=== PATIENT | female | born 1965 | race Caucasian/White ===

== ENCOUNTER 2019-02-11 12:51 | Inpatient (IN) ==
[2019-02-11] MEDS ORDERED: PREDNISONE PO ONE (13:52)
[2019-02-11] MEDS ORDERED: DUONEB (A & A) INH ONE ×2 (13:52→16:32)
--- NOTE | 2019-02-11 14:21 | EKG Report ---
Test Performed on : 02/11/2019 12:56:52 PM Test Reason : ED. No order in [place] Blood Pressure : / mmHG Vent. Rate : 086 BPM Atrial Rate : 086 BPM P-R Int : 170 ms QRS Dur : 094 ms QT Int : 360 ms P-R-T Axes : 020 060 049 degrees QTc Int : 430 ms Sinus rhythm. with occasional premature ventricular complexes. Incomplete right bundle branch block Borderline ECG When compared with ECG of 05-SEP-2011 06:10, premature ventricular complexes. are now present Unconfirmed Result
[2019-02-11 15:09] LABS: BASO# 0.03 X1000 (0.0-0.2); BASO% 0.2 % (0.0-0.8); EOS# 0.49 X1000 (0.0-0.7); HEMATOCRIT 44.7 % (37.0-47.0); HEMOGLOBIN 14.1 g/dL (12.0-16.0); IMM GRAN# 0.04 X1000 (0.0-0.04); IMM GRAN% 0.3 % (0.0-0.5); LYMPH% 8.2 % (20.5-51.1); MCH 27.3 PG (27-31); MCHC 31.5 g/dL (33-37); MCV 86.5 FL (81-99); MONO# 0.59 X1000 (0.11-0.59); MONO% 4.8 % (1.7-9.3); MPV 10.3 FL (7.4-10.4); NEUT# 10.08 X1000 (1.4-6.5); NEUT% 82.5 % (42.2-75.2); PLT 313 X1000 (130-400); RBC 5.17 XMIL (4.2-5.4); RDW 15.8 % (11.5-14.5); WBC 12.23 X1000 (4.8-10.8)
--- NOTE | 2019-02-11 15:19 | Diag Imaging Result Doc PS360 ---
EXAM: CHEST-1 VIEW - 02/11/2019 HISTORY: wheezing TECHNIQUE: Portable chest COMPARISON: 09/03/2011 FINDINGS: Heart size is normal. There is right upper lobe calcified granuloma from old granulomatous disease similar to prior. There is symmetrical haziness at the bilateral lateral lung bases which appears to relate to artifact from overlying breast shadows. Lungs otherwise appear clear. The lungs do not appear substantially hyperexpanded. There is no pleural effusion or pneumothorax identified. IMPRESSION: No evidence of acute disease. Electronically signed by Filiberto Reid 02/11/2019 3:16 PM
[2019-02-11 15:32] LABS: AGAP 11; ALB/GLOB RATIO 1.1; ALBUMIN 3.9 g/dL (3.5-5.0); ALKALINE PHOSPHATASE 68 U/L (32-104); BUN 10 mg/dL (8-22); CALCIUM 8.9 mg/dL (8.8-10.2); CHLORIDE 102 mmol/L (98-107); COSMO 279; CREATININE 0.7 mg/dL (0.5-0.9); ESTIMATED GFR > 60; GLUCOSE 145 mg/dL (70-104); GOT 28 U/L (10-30); GPT 22 U/L (10-36); POTASSIUM 3.9 mmol/L (3.5-5.1); SODIUM 139 mmol/L (136-145); TCO2 26 mmol/L (25-35); TOTAL BILIRUBIN 0.73 mg/dL (0.20-1.00); TOTAL PROTEIN 7.5 g/dL (6.3-8.3)
[2019-02-11] MEDS ORDERED: DUONEB (A & A) INH PRN (18:31)
[2019-02-11] MEDS: DUONEB (A & A) INH SCH ×2 (19:30→23:23)
[2019-02-11] MEDS: SOLU-MEDROL IV SCH (20:07)
[2019-02-11] MEDS: LOVENOX SUBQ SCH (20:10)
[2019-02-11] MEDS: NS 1,000 ML IV SCH (20:11)
[2019-02-11] MEDS: LEVAQUIN 500 MG/D5W 500 MG/100 ML IVPB IV SCH (20:12)
[2019-02-11] MEDS ORDERED: NORVASC PO ONE (20:32)
[2019-02-11 21:19] LABS: CK INDEX 0.8 (0.0-2.5); CK-MB 8.18 ng/mL (0.0-5.0)
--- NOTE | 2019-02-11 22:22 | HISTORY AND PHYSICAL ---
CHIEF COMPLAINT.: Wheezing which has been ongoing for the last 2 months. HISTORY OF PRESENT ILLNESS: Ms. Lizeth Flores is a 53-year-old female who has a history of bronchial asthma, hypertension, obesity, hypothyroidism. In the past 2 months, she has been experiencing wheezing and this has progressively gotten worse. In addition she describes nonproductive cough as well as shortness of breath. She denies any chest pain. She was seen and evaluated in the ER today. X-ray of the chest did not show any evidence of acute disease. She will now be admitted to the hospital for further management. PAST MEDICAL HISTORY: Hypertension, hypothyroidism, obesity, bronchial asthma. SOCIAL HISTORY: No history of cigarette smoking, alcohol or drug use. ALLERGIES: No known drug allergies. FAMILY HISTORY: Positive for strokes as well as cancer. MEDICATIONS: Include levothyroxine as well as lisinopril hydrochlorothiazide 10/25 one p.o. daily. REVIEW OF SYSTEMS: Constitutional: No fevers. RADIOLOGIST PHYSICIAN: Has headaches. HEENT: No blurred vision. Has a nasal congestion. Cardiovascular: No chest pain. GI: No nausea, vomiting, diarrhea. : No dysuria Dermatology: No skin lesions. Hematology: No bleeding problems. Endocrine: She has thyroid disease but no diabetes. EXAMINATION: Vital Signs: Temperature 98.1 degrees, pulse 86, respiratory rate is 20, blood pressure is 116/89, oxygen saturation 94%. HEENT: She is atraumatic, normocephalic. She is anicteric. No oral lesions noted. Neck: No lymphadenopathy or thyromegaly. Cardiovascular: S1, S2. Respiratory: Occasional rhonchi noted. Abdomen: Soft, obese, nontender. No masses felt. Extremities: Trace edema in the lower extremities. Central nervous system: No obvious focal deficits noted. LABS: WBC 12.23, hematocrit is 44.7 with a platelet count of 313,000. Sodium 139, potassium 3.9, chloride 102, bicarb 26, BUN is 10, creatinine 0.97, CK is 1068. ASSESSMENT AND PLAN: This is a 53-year-old female presented to hospital because of cough, shortness of breath as well as wheezing. 1. Bronchial asthma exacerbation. Will maintain patient on nebulized bronchodilators, steroids as well as antibiotics. Follow up on sputum cultures. In light of the severity of her symptoms I would like her managed today CIC. Will also get a Pulmonology consult as well. 2. Rhabdomyolysis. Maintain her on intravenous fluids and follow up on CK levels. 3. Hypothyroidism. Check thyroid function test. Continue levothyroxine. 4. Hypertension. Continue current antihypertensive regimen. 5. Morbid obesity aware. The patient will need to be on a low calorie diet. 6. Deep vein thrombosis prophylaxis Lovenox. 7. Gastrointestinal prophylaxis PPI. cc: Juni Gibson MD [facility]
[2019-02-11 23:20] LABS: BLOOD TYPE ARTERIAL; SAMPLE BLOOD
[2019-02-11 23:21] LABS: ALLEN TEST YES; HCO3-(ACT) 27.2 mmoll (20.0-26.0); METHB 1.1 % (0.0-1.5); O2(CT) 19.9 mL/dL (15.0-23.0); O2HB 95.5 % (95.0-99.0); PCO2(98.6) 39 mmHg (35-45); PO2(98.6) 84 mmHg (60-100); SAO2 98.4 % (95.0-100.0); THB 14.8 g/dL (11.5-17.4); pH(98.6) 7.45 (7.35-7.45)
[2019-02-11 23:22] LABS: MODALITY CANNULA
[2019-02-12] MEDS: SOLU-MEDROL IV SCH ×3 (02:06→18:13)
[2019-02-12 03:53] LABS: CK INDEX 0.8 (0.0-2.5); CK-MB 7.51 ng/mL (0.0-5.0)
[2019-02-12] MEDS: DUONEB (A & A) INH SCH ×5 (04:25→19:32)
[2019-02-12 05:42] LABS: ALLEN TEST YES; BE 1.6 mmoll (-3.0-3.0); BLOOD TYPE ARTERIAL; HCO3-(ACT) 26.1 mmoll (20.0-26.0); METHB 1.2 % (0.0-1.5); O2(CT) 20.4 mL/dL (15.0-23.0); O2HB 95.8 % (95.0-99.0); PCO2(98.6) 39 mmHg (35-45); PO2(98.6) 95 mmHg (60-100); SAMPLE BLOOD; SAO2 98.4 % (95.0-100.0); THB 15.1 g/dL (11.5-17.4); pH(98.6) 7.43 (7.35-7.45)
[2019-02-12 05:46] LABS: MODALITY CANNULA
[2019-02-12 05:55] LABS: BASO# 0.01 X1000 (0.0-0.2); BASO% 0.1 % (0.0-0.8); EOS# 0.01 X1000 (0.0-0.7); EOS% 0.1 % (0.0-10.0); HEMATOCRIT 42.2 % (37.0-47.0); HEMOGLOBIN 13.5 g/dL (12.0-16.0); IMM GRAN# 0.07 X1000 (0.0-0.04); IMM GRAN% 0.5 % (0.0-0.5); LYMPH# 0.55 X1000 (1.2-3.4); LYMPH% 4.3 % (20.5-51.1); MCH 27.5 PG (27-31); MCV 85.9 FL (81-99); MONO# 0.12 X1000 (0.11-0.59); MONO% 0.9 % (1.7-9.3); MPV 10.6 FL (7.4-10.4); NEUT# 12.16 X1000 (1.4-6.5); NEUT% 94.1 % (42.2-75.2); PLT 323 X1000 (130-400); RBC 4.91 XMIL (4.2-5.4); RDW 15.8 % (11.5-14.5); WBC 12.92 X1000 (4.8-10.8)
[2019-02-12 06:05] LABS: AGAP 11; BUN 12 mg/dL (8-22); CALCIUM 8.9 mg/dL (8.8-10.2); CHLORIDE 102 mmol/L (98-107); CK TOTAL 920 U/L (24-173); COSMO 283; CREATININE 0.7 mg/dL (0.5-0.9); ESTIMATED GFR > 60; GLUCOSE 210 mg/dL (70-104); SODIUM 139 mmol/L (136-145); TCO2 26 mmol/L (25-35)
[2019-02-12 06:07] LABS: BANDS 2 % (0-1); LYMPHS 6 % (21-51); SEGS 92 % (42-75)
[2019-02-12] MEDS: PRILOSEC PO SCH (06:21)
[2019-02-12] MEDS: SYNTHROID PO SCH (06:21)
--- NOTE | 2019-02-12 07:57 | Diag Imaging Result Doc PS360 ---
EXAM: CHEST-1 VIEW INDICATION: asthma TECHNIQUE: One view COMPARISON: 02/11/2019 FINDINGS: The lungs remain grossly clear. There is no discrete pleural fluid collection or pneumothorax. The cardiomediastinal silhouette and central vasculature are grossly unremarkable. IMPRESSION: Essentially stable chest with no definite acute pathology. Electronically signed by Mark Adam 02/12/2019 7:55 AM
[2019-02-12] MEDS: NS 1,000 ML IV SCH ×2 (08:30→23:07)
[2019-02-12] MEDS: PRINZIDE 10/12.5MG PO SCH (08:30)
[2019-02-12 12:42] LABS: CK INDEX 1.1 (0.0-2.5); CK-MB 10.08 ng/mL (0.0-5.0)
--- NOTE | 2019-02-12 17:27 | PROGRESS NOTE ---
DATE: 02/12/2019 SUBJECTIVE: This morning Ms. Flores referred to be feeling a lot better but she is still wheezing. OBJECTIVE: Vitals: Blood pressure is 113/73, pulse of 85, respiration is 18, temperature is 97.8 degrees. General: Ms. Flores is a 53-year-old morbidly obese female she is in bed, no distress. Mucosa is pink and moist. Anicteric. Acyanotic. Neck: Supple. Chest: Air entry is bilaterally reduced. There is diffuse end expiratory wheezing, no crackles. Cardiovascular: Regular rate and rhythm. Abdomen: Soft. Extremities: No pedal edema. CRM COORDINATOR: Patient is awake, alert, oriented, follows commands. LABORATORY DATA: Has been reviewed. WBC is 13.92, hemoglobin is 13.5, platelet count of 323,000. ABG is unremarkable. Chemistry is completely normal, AST is 929. MEDICATIONS: Have all been reviewed. Patient is currently on albuterol nebs, Levaquin, levothyroxine, lisinopril plus hydrochlorothiazide and amlodipine. ASSESSMENT: 1. Acute hypoxemic respiratory failure secondary to asthma exacerbation. 2. Persistent moderate bronchial asthma with exacerbation. Will continue with bronchodilation and steroid therapy. Patient seems to be doing a lot better. 3. Seasonal allergies noted. 4. Hypertension. Patient is on hydrochlorothiazide and lisinopril, she seems to be well controlled. This is a home medication. However if her cough continues to be a problem I think the lisinopril will probably need to be changed. 5. Rhabdomyolysis, CK was elevated on admission, it seems to be trending down. I think this is all related to excess utilization of the intercostal muscles, will however do an LUPE to rule out any possible underlying myositis. 6. Hypothyroidism, will continue with levothyroxine. 7. Morbid obesity with body mass index of 60.7, weight management is advised. cc: MD Juni Maurer MD MTDD
[2019-02-12] MEDS: LEVAQUIN 500 MG/D5W 500 MG/100 ML IVPB IV SCH (18:13)
[2019-02-12] MEDS: LOVENOX SUBQ SCH (18:15)
--- NOTE | 2019-02-12 19:25 | CONSULTATION ---
DATE OF CONSULTATION: 02/12/2019 REQUESTING PROVIDER: Juni Gibson MD REASON FOR CONSULTATION: Asthma exacerbation. HISTORY OF PRESENT ILLNESS: This is a 53-year-old female with a medical history of asthma, morbid obesity, hypertension and hypothyroidism. She presented to the ER yesterday morning with worsening wheezing. Initial workup in the ER revealed asthma exacerbation and rhabdomyolysis. She has been admitted to the [facility] for further evaluation and management. At the time of my examination, the patient is sitting in the bed with her at the bedside. She has mild respiratory distress, but no accessory muscle using noted. She reports she has bronchitis annually for 5 years when the weather becomes cold, and this year it has been really bad. She has being coughing with thick creamy sputum, chest congestion, intermittent wheezing and shortness of breath since last August. Since this Thursday, she developed watery right eye and stuffed right nostril. She began to breathe through her mouth. Later her wheezing, coughing, chest congestion and shortness of breath became progressively worsened. She had to use nebulizer daily. She also had orthopnea. Yesterday morning at 4 a.m. she woke up with severe chest congestion and wheezing. She felt that she could not breathe. She also reports intermittent pedal edema and witnessed snoring. She has no chest pain or palpitations. PAST MEDICAL AND SURGICAL HISTORY: 1. Asthma. The patient reports she has been prescribed with some maintenance inhalers, but she never takes it as she cannot afford it. 2. Morbid obesity. Current BMI 60.7. 3. Hypertension. 4. Hypothyroidism. SOCIAL HISTORY: The patient is and lives at home with her family. She has no pet at home. She has no history of tobacco, alcohol or illicit drug use. ALLERGIES: No known drug allergies. FAMILY HISTORY: Positive for stroke, liver cancer, breast cancer, TB and leukemia. REVIEW OF SYSTEMS: A 10-point review of systems was conducted and the pertinence is listed in the HPI, otherwise noncontributory. PHYSICAL EXAMINATION: Vital Signs: Temperature 97.4 degrees, blood pressure 163/85, pulse 77, respiratory rate 18, oxygen saturation 94% on nasal cannula at 2. General: Chronically ill appearing, morbidly obese, in mild respiratory distress with no accessory muscle use. The patient's at bedside. HEENT: Atraumatic. Trachea midline. Mucosa pink and dry. Respiratory: Mildly labored. Symmetrical excursion. Auscultation revealed diminished breathing sounds bibasilarly with prolonged expiratory phase and expiratory wheezing bilaterally. Cardiovascular: Regular rate and rhythm. Gastrointestinal: Normoactive bowel sounds in all 4 quadrants. Soft, tender at left lower quadrant with cough. Obese. Extremities: Bilateral lower extremity pedal edema 2+. No cyanosis. No clubbing. Dorsalis pedis 1+ bilaterally. Neurologic: Alert and oriented x3. Speech fluent. Follows commands. LABORATORY DATA: White blood cell 12.92, hemoglobin 13.5, hematocrit 42.2, platelets 323,000. Sodium 139, potassium 4.0, chloride 102, carbon dioxide 26, BUN 12, creatinine 0.7, glucose 210. CK is 920. CK-MB 7.51. ABG pH 7.43, pCO2 is 39, pO2 is 95, HCO3 is 26.1, base excess 1.6, and oxyhemoglobin 95.8. DIAGNOSTIC DATA: Chest x-ray revealed essentially stable chest with no definite acute pathology. ASSESSMENT: This is a 53-year-old female with a medical history of asthma, morbid obesity, hypertension and hypothyroidism. She has been admitted to the cardiac intensive care unit with asthma exacerbation and rhabdomyolysis. 1. Acute hypoxemic respiratory failure secondary to asthma exacerbation. 2. Asthma exacerbation. 3. Morbid obesity. 4. Rhabdomyolysis. PLAN: 1. Continue supplemental oxygen. 2. Continue antibiotics, steroid and bronchodilators. 3. Follow up with proBNP and sputum culture. 4. Recommend to continue LIAM; initiate an inhaled corticosteroid at discharge; and close outpatient paper maker followup. 5. Continue GI and DVT prophylaxis. 6. Further recommendations pending hospital course. Thank you for the courtesy of this consult. Dictated by DENICE Chapman for Molina Choi MD cc: DENICE Chapman MD Clement Okinedo, MD [facility] SYSTEMCarlene
[2019-02-13] MEDS: DUONEB (A & A) INH SCH ×7 (02:33→23:47)
[2019-02-13] MEDS: SOLU-MEDROL IV SCH ×3 (02:56→17:48)
[2019-02-13 06:04] LABS: BASO# 0.01 X1000 (0.0-0.2); HEMATOCRIT 42.4 % (37.0-47.0); HEMOGLOBIN 13.2 g/dL (12.0-16.0); IMM GRAN# 0.14 X1000 (0.0-0.04); IMM GRAN% 0.7 % (0.0-0.5); LYMPH# 0.67 X1000 (1.2-3.4); LYMPH% 3.3 % (20.5-51.1); MCH 27.6 PG (27-31); MCHC 31.1 g/dL (33-37); MCV 88.7 FL (81-99); MONO# 0.83 X1000 (0.11-0.59); MONO% 4.1 % (1.7-9.3); MPV 10.5 FL (7.4-10.4); NEUT# 18.49 X1000 (1.4-6.5); NEUT% 91.9 % (42.2-75.2); PLT 313 X1000 (130-400); RBC 4.78 XMIL (4.2-5.4); RDW 16.3 % (11.5-14.5); WBC 20.14 X1000 (4.8-10.8)
[2019-02-13] MEDS: SYNTHROID PO SCH (06:07)
[2019-02-13] MEDS: PRILOSEC PO SCH (06:07)
[2019-02-13 06:10] LABS: AGAP 9; ALB/GLOB RATIO 1.2; ALBUMIN 3.7 g/dL (3.5-5.0); ALKALINE PHOSPHATASE 59 U/L (32-104); BUN 15 mg/dL (8-22); CALCIUM 8.3 mg/dL (8.8-10.2); CHLORIDE 105 mmol/L (98-107); CK TOTAL 874 U/L (24-173); COSMO 285; CREATININE 0.7 mg/dL (0.5-0.9); ESTIMATED GFR > 60; GLUCOSE 214 mg/dL (70-104); GOT 25 U/L (10-30); GPT 24 U/L (10-36); POTASSIUM 4.6 mmol/L (3.5-5.1); SODIUM 139 mmol/L (136-145); TCO2 25 mmol/L (25-35); TOTAL BILIRUBIN 0.24 mg/dL (0.20-1.00); TOTAL PROTEIN 6.7 g/dL (6.3-8.3)
[2019-02-13 06:17] LABS: BANDS 2 % (0-1); LYMPHS 4 % (21-51); MONO 2 % (1-9); SEGS 92 % (42-75)
[2019-02-13] MEDS: ZYRTEC PO SCH (08:45)
[2019-02-13] MEDS: PRINZIDE 10/12.5MG PO SCH (08:45)
[2019-02-13] MEDS: NS 1,000 ML IV SCH (13:06)
--- NOTE | 2019-02-13 15:36 | PROGRESS NOTE ---
DATE: 02/13/2019 SUBJECTIVE: This morning Ms. Flores refers to be doing fairly okay. Still has some residual wheezing. OBJECTIVE: Vitals: Blood pressure is 147/72, pulse is 79, respiration is 18, temperature 97.3 degrees. General: Ms. Flores is a 53-year-old female she is in bed, no seemingly distress. Mucosa is pink and moist. Anicteric. Acyanotic. Neck: Supple. She is obese. BMI is 60.7. Respiratory: Air entry is bilaterally reduced. There is diffuse bilateral wheezing. There is also prolonged expiratory phase of respiration. Cardiovascular: Regular rate and rhythm. No murmurs, no rubs, no gallops. Abdomen: Soft, nontender. Bowel sounds present. Extremities: No pedal edema. Distal pulses present. PAVING BLOCK CUTTER: Patient is awake, alert and oriented. LABORATORY DATA: WBC is up to 20.14, hemoglobin is 13.3, platelet count of 313,000. Chemistry is also reviewed is completely normal, glucose was slightly up to 214 from the steroids, creatine kinase is down to 874. ASSESSMENT: 1. Acute hypoxemic respiratory failure secondary to asthma exacerbation. 2. Persistent mild to moderate bronchial asthma with exacerbation. Will continue with the bronchodilation and steroids. Pulmonary Medicine is on board. Seasonal allergies. Patient is currently on Zyrtec. 1. Hypertension is currently controlled. 2. Mild rhabdomyolysis. CK is on downward trend. Patient is currently on fluids. 3. Hypothyroidism. Will continue with levothyroxine supplementation. 4. Morbid obesity with body mass index of 60.7. So in general I think Ms. Flores seems to be doing fairly okay. She seems to be wheezing less today than yesterday. We are going to continue with the current management and follow up with further recommendation from Pulmonary Medicine. Patient has been seen by Dr. Choi. cc: Sesar Coppola MD
[2019-02-13] MEDS ORDERED: ROBITUSSIN-AC PO PRN (17:07)
[2019-02-13] MEDS: LOVENOX SUBQ SCH (17:48)
[2019-02-13] MEDS: LEVAQUIN 500 MG/D5W 500 MG/100 ML IVPB IV SCH (17:48)
[2019-02-14] MEDS ORDERED: BLISTEX MEDICATED BERRY LIP BALM TOP PRN (00:35)
[2019-02-14] MEDS: SOLU-MEDROL IV SCH ×3 (02:03→21:48)
[2019-02-14] MEDS: NS 1,000 ML IV SCH ×3 (02:03→19:01)
[2019-02-14] MEDS: DUONEB (A & A) INH SCH ×6 (03:40→23:35)
[2019-02-14] MEDS: SYNTHROID PO SCH (06:05)
[2019-02-14] MEDS: PRILOSEC PO SCH (06:05)
--- NOTE | 2019-02-14 08:37 | PROGRESS NOTE ---
DATE: 02/14/2019 SUBJECTIVE: Patient reports she is still having chest tightness every time she tried to move some. At rest, she noticed improvement in shortness of breath. OBJECTIVE: Vital Signs: Temperature 97.7, heart rate 67, respiratory rate 18, blood pressure 155/79, O2 saturation 94% on 2 L nasal cannula. General Examination: This is a chronically ill- appearing and extremely morbidly obese, 53-year-old, female lying in bed, in no acute distress. Cardiovascular Examination: S1, S2 heard. No murmurs, gallops, or rubs. Regular rate and rhythm. Respiratory Examination: Decreased air entry bilaterally, most likely related to body habitus but still we noticed some diffuse wheezing in both pulmonary bases and prolonged expiratory phase of respiration as well. The patient is not using any accessory muscles or having work of breathing. Abdomen: Soft, nontender to palpation. Bowel sounds present. No organomegaly. Extremities: No clubbing, cyanosis, or edema. Peripheral pulses present in both legs. Neurological Examination: The patient is alert and oriented x3. Moves 4 extremities. Laboratory Data: Reviewed. White cell count has increased from 12,000 to 20,000. Glucose 214. ASSESSMENT/PLAN: 1. Acute hypoxemic respiratory failure secondary to asthma exacerbation. Patient is on DuoNeb every 4 hours and also the patient is receiving methylprednisolone as well. Because of the increasing white cell count, I will prefer to start reducing the doses of Solu-Medrol and we will keep checking CBC daily. 2. Hypertension. Blood pressure is under control. We will continue with the same management. 3. Mild rhabdomyolysis. Aware. We will continue with intravenous fluids. 4. Hypothyroidism. We will continue with levothyroxine supplementation. 5. Morbid obesity. Aware. Body mass index 60.7. 6. Disposition. I think this patient needs to stay more time in the hospital. I do think that part of this dyspnea is not only related to asthma exacerbation but could be some degree of obstructive sleep apnea present with cor pulmonale because of this morbid obesity. At this point, I am going to order an echocardiogram and we will go from there. We will continue with the same management. cc: Sandoval Russo MD
[2019-02-14] MEDS: ZYRTEC PO SCH (08:45)
[2019-02-14] MEDS: PRINZIDE 10/12.5MG PO SCH (08:45)
--- NOTE | 2019-02-14 09:26 | Diag Imaging Result Doc PS360 ---
EXAM: CHEST-2 VIEWS HISTORY: hypoxia TECHNIQUE: Chest two views COMPARISON: 02/12/2019 FINDINGS: The lungs are well expanded. The heart is not enlarged. The vessels are not distended. There are no infiltrates. No pleural effusions. There is a right-sided granuloma. IMPRESSION: No acute abnormality. Electronically signed by Edward Jade 02/14/2019 9:23 AM
--- NOTE | 2019-02-14 15:33 | EKG Report ---
Test Performed on : 02/14/2019 3:27:04 PM Test Reason : SR/vs Afib Blood Pressure : / mmHG Vent. Rate : 120 BPM Atrial Rate : 144 BPM P-R Int : 000 ms QRS Dur : 088 ms QT Int : 310 ms P-R-T Axes : 000 053 046 degrees QTc Int : 438 ms Atrial fibrillation. with rapid ventricular response. Nonspecific ST abnormality Abnormal ECG When compared with ECG of 11-FEB-2019 12:56, (Unconfirmed) Atrial fibrillation. has replaced Sinus rhythm. ST now depressed in Inferior leads Confirmed by Leyla STUART, Shady ([id number]) on 02/15/2019 8:37:30 AM
[2019-02-14] MEDS: FLONASE NAS SCH (15:52)
[2019-02-14] MEDS: LOPRESSOR IV SCH ×2 (16:07→21:48)
[2019-02-14] MEDS: LEVAQUIN 500 MG/D5W 500 MG/100 ML IVPB IV SCH ×2 (17:39→17:46)
[2019-02-14] MEDS: LOVENOX SUBQ SCH ×2 (17:39→17:46)
[2019-02-15] MEDS: DUONEB (A & A) INH SCH ×6 (03:25→23:25)
[2019-02-15] MEDS: LOPRESSOR IV SCH ×2 (03:30→09:14)
[2019-02-15 05:51] LABS: BASO# 0.02 X1000 (0.0-0.2); BASO% 0.1 % (0.0-0.8); HEMATOCRIT 44.8 % (37.0-47.0); HEMOGLOBIN 13.8 g/dL (12.0-16.0); IMM GRAN# 0.24 X1000 (0.0-0.04); IMM GRAN% 1.7 % (0.0-0.5); LYMPH# 0.87 X1000 (1.2-3.4); LYMPH% 6.3 % (20.5-51.1); MCH 27.5 PG (27-31); MCHC 30.8 g/dL (33-37); MCV 89.4 FL (81-99); MONO# 0.74 X1000 (0.11-0.59); MONO% 5.3 % (1.7-9.3); MPV 10.5 FL (7.4-10.4); NEUT# 12.01 X1000 (1.4-6.5); NEUT% 86.6 % (42.2-75.2); PLT 290 X1000 (130-400); RBC 5.01 XMIL (4.2-5.4); RDW 16.2 % (11.5-14.5); WBC 13.88 X1000 (4.8-10.8)
[2019-02-15 06:22] LABS: AGAP 11; BUN 18 mg/dL (8-22); CHLORIDE 101 mmol/L (98-107); COSMO 287; CREATININE 0.8 mg/dL (0.5-0.9); ESTIMATED GFR > 60; GLUCOSE 237 mg/dL (70-104); SODIUM 139 mmol/L (136-145); TCO2 27 mmol/L (25-35)
[2019-02-15] MEDS: PRILOSEC PO SCH (06:44)
[2019-02-15] MEDS: SYNTHROID PO SCH (06:44)
[2019-02-15] MEDS: NS 1,000 ML IV SCH (06:45)
--- NOTE | 2019-02-15 09:15 | Diag Imaging Result Doc PS360 ---
EXAM: CT ANGIOGRM PULMONARY ARTERIES INDICATION: Dyspnea. unresolved TECHNIQUE: This exam was performed using automated exposure control, adjustment of mA or kV according to patient size, and/or use of iterative reconstruction technique. Thin section axial images and 3-D MIPS were obtained. COMPARISON: None. FINDINGS: There is no evidence of pulmonary embolism. There is no evidence of aortic dissection or aneurysm. There are a few calcified mediastinal lymph nodes indicating prior granulomatous disease. There is no cardiomegaly. There is a calcified granuloma in the right upper lobe. There is mild subsegmental atelectasis at the lung bases, more prominent on the left. There is no pleural fluid collection and no pneumothorax. Limited views of the upper abdomen reveals hepatic steatosis. IMPRESSION: 1.Mild subsegmental atelectasis at the bases. 2.No evidence of pulmonary embolism or other definite acute chest pathology, otherwise. Electronically signed by Mark Adam 02/15/2019 9:12 AM
[2019-02-15] MEDS: PRINZIDE 10/12.5MG PO SCH (09:17)
[2019-02-15] MEDS: ZYRTEC PO SCH (09:18)
[2019-02-15] MEDS: SOLU-MEDROL IV SCH ×2 (09:18→20:22)
[2019-02-15] MEDS: FLONASE NAS SCH (11:28)
[2019-02-15] MEDS ORDERED: CARDIZEM 125 MG/D5W 125 MG/125 ML IVPB IV SCH (14:00)
--- NOTE | 2019-02-15 14:17 | ECHO REPORT ---
ORDER DATE: 02/14/2019 INTERPRETING PHYSICIAN: Dr. Art Victor. ECHOCARDIOGRAPHIC MEASUREMENTS: 1. Interventricular septum: 1.2 cm. 2. Left ventricular posterior wall: 0.9 cm. 3. Diastolic diameter: 5.1 cm. 4. Left atrium: 3.5 cm. 5. Aorta: 3.2 cm. SUMMARY OF THE 2-DIMENSIONAL IMAGIN. Aortic valve leaflets were trileaflet, mildly sclerosed, opening normally. 2. Pulmonic valve was normal. 3. Tachycardia was noted. Heart rate varying from 100 to 115 beats per minute. 4. Tricuspid valve was normal. 5. Mitral valve was normal. 6. Normal left ventricular cavity size. Estimated ejection fraction of 60%. 7. There is mild mitral regurgitation. 8. Peak velocity across the aortic valve less than 2 m/sec. There is no aortic stenosis or regurgitation. 9. Mild tricuspid regurgitation. Peak velocity across the tricuspid valve was 3.3 m/sec. 10. Pulmonary artery systolic pressure of 53 mmHg. 11. Atrial fibrillation was noted. 12. Anterior echo-free space, suggestive of pericardial fat pad. 13. There is no pericardial effusion or obvious intracardiac mass or thrombus. cc: MD Sandoval Irving MD
--- NOTE | 2019-02-15 14:54 | PROGRESS NOTE ---
DATE: 02/15/2019 SUBJECTIVE: Today, Ms. Flores referred to be doing fairly okay. According to her, whenever she takes a deep breath, she feels like she is still not getting enough air. OBJECTIVE: Vital Signs: Blood pressure is 143/92, pulse 114, and she seems to have been running tachycardic since early this morning, temperature is 97.5 degrees. General Examination: Ms. Flores is a 53-year-old, morbidly obese, female. She has a BMI of 60.7. She was sitting at the edge of the bed. She did not seem to be in any cardiopulmonary distress. HEENT: Mucosa is pink and moist. Anicteric. Acyanotic. Neck: Supple. Chest: Air entry is bilaterally reduced, just some faint wheezing bilaterally but the chest sounds a whole lot better than days before. Cardiovascular: Irregularly irregular and tachycardic. No murmurs, no rubs, no gallops. Abdomen: Soft. Distended but nontender. Extremities: No pedal edema. LOW ALTITUDE AIR DEFENSE OFFICER: The patient is awake, alert, and oriented. There is no focal neurological deficit. Laboratory Data: WBC is 13.88, hemoglobin is 13.8, platelet count of 290,000. Chemistry is also reviewed. It is completely unremarkable except for glucose of 231. The patient's EKG did show atrial fibrillation with RVR yesterday. We are going to repeat this. Multiple tracings on telemetry monitoring also shows atrial fibrillation. An echocardiogram which was done yesterday shows an ejection fraction of 60%. No valvular abnormality. A CTA of the lungs showed mild segment atelectasis. No evidence of PE. ASSESSMENT: 1. Acute hypoxemic respiratory failure on presentation secondary to asthma exacerbation. The patient is currently on just 3 to 4 L of nasal cannula. We will continue to titrate this down. 2. Persistent [id number] bronchial asthma with exacerbation. This is improving. Patient is currently on bronchodilation therapy and steroids. Pulmonary medicine is on board. The patient has requested to be seen by another recycling operations manager so Dr. Santana has been consulted. 3. Seasonal allergies. Patient is currently on Zyrtec. 4. Hypertension, is controlled. 5. Mild rhabdomyolysis. CK was on downward trend. LUPE is negative. We do not think this is related to any myositis. 6. Hypothyroidism. We will continue with the levothyroxine supplements. 7. Morbid obesity with body mass index of 60.7. Weight management has been recommended. 8. Suspected sleep apnea. Patient is advised to follow up with sleep studies. 9. New onset of atrial fibrillation with rapid ventricular response. I understand this started yesterday. Patient denies having this before. I think this is what is driving her new onset of another round of shortness of breath and the sensation that she cannot catch her breath. I think she is going into some form of diastolic heart failure. We are going to put her on a Cardizem drip and we will consult cardiology. PLAN: In general, I think Ms. Flores seems to be doing a lot better from the asthma standpoint. However, I understand from yesterday, she had been in atrial fibrillation with RVR. She was given a dose of metoprolol. We are going to start her on a Cardizem drip and consult cardiology. So far, echocardiogram has been unremarkable. A CTA of the lung has also been unremarkable. cc: Sesar Coppola MD
[2019-02-15] MEDS: CARDIZEM 125/NS 125 MG/125 ML IVPB IV SCH (15:26)
--- NOTE | 2019-02-15 15:40 | EKG Report ---
Test Performed on : 02/15/2019 1:58:58 PM Test Reason : confirmation of Afib Blood Pressure : / mmHG Vent. Rate : 113 BPM Atrial Rate : 241 BPM P-R Int : 000 ms QRS Dur : 078 ms QT Int : 316 ms P-R-T Axes : 000 070 050 degrees QTc Int : 433 ms Atrial fibrillation. with rapid ventricular response. Abnormal ECG When compared with ECG of 14-FEB-2019 15:27, ST no longer depressed in Inferior leads Confirmed by Jonatan STUART, Ravinder Perez ([id number]) on 02/17/2019 8:45:15 AM
--- NOTE | 2019-02-15 17:24 | CARDIOLOGY CONSULTATION ---
DATE: 02/15/2019 CONSULTATION REQUESTED BY: Dr. Coppola, hospitalist service. REASON FOR CONSULTATION: Atrial fibrillation, rapid response. CHIEF COMPLAINT: Dyspnea. HISTORY: Mrs. Flores is a 53-year-old female who normally follows with Dr. Sallie Estevez. She presented to the hospital on February 11 with a complaint of a relatively sudden onset of dyspnea that started about 2 days prior to admission. The patient says that every year during the fall and during the springtime when she turns on her air condition system and turns off the heat or vice versa she develops symptoms of asthma. This time the symptoms were more severe than usual. Her dyspnea got worse. It was not controlled by the usual measures, rescue inhaler and so forth. She fell really sick with it. When she presented to the emergency room, EKG was done and it showed sinus rhythm with incomplete right bundle branch block. No ischemic changes. A chest x- ray was done in the ER was reported as negative. Blood work showed ABGs on 2 L of oxygen nasal cannula PO2 84, pCO2 39, pH 7.45. Her electrolytes were normal. Her creatine kinase was 1068. ProBNP initially was 106 pg/mL. Subsequently on the she developed a rapid rate and she appeared to be in atrial fibrillation with rapid response. They have requested an echocardiogram that showed normal ejection fraction. She has no valvular disease. ProBNP has jumped to 229 pg/mL. Her thyroid panel is normal. The patient has felt heaviness in the chest which is little different than the type of discomfort that she had on the day of admission. They have put her on IV Cardizem. Rate is better controlled right now. The patient states that her past history positive for asthma for a long time. She also has history of hypothyroidism and hypertension. SURGICAL HISTORY: She has had 2 C-sections. She had cholecystectomy, partial hysterectomy. SOCIAL HISTORY: She lives with her who is currently at work. She has 2 children ages 32 and 34. She has never been a smoker nor a drinker. FAMILY HISTORY: Negative for heart disease. HOME MEDICINES: At this time included levothyroxine 88 mcg daily, lisinopril hydrochlorothiazide 20/25 daily. ALLERGIES: Are negative. REVIEW OF SYSTEMS: The patient has been morbidly obese and she has gained weight progressively since she developed osteoarthritis of both knees. That is what limits her from doing activities. She currently weighs 387 pounds making her BMI 60.7, which is super morbidly obese. She really does not have any other positive other than the cyclical episodes of asthma during the change of season. Multiple systems were checked. She has never had issues with arrhythmia in the past or heart disease. PHYSICAL EXAMINATION: Blood pressure is 154/82, temperature 98.2 degrees, pulse 112, respirations 18. She is awake, alert, oriented, in no distress.HEENT: Unremarkable. Chest: Shows diminished breath sounds with bilateral wheezes. Heart: Sounds are distant, irregularly irregular. Abdomen: Obese, nontender. No masses. Extremities: Showed trace to 1+ brawny edema. She has good pulses. Neurological: Nonfocal. Moves 4 extremities. IMPRESSION: 1. Patient presenting with bronchial asthma with acute bronchitis. 2. Paroxysmal atrial fibrillation. 3. Morbid obesity. 4. Hypertension. 5. Hypothyroidism. RECOMMENDATION: At this time, we will treat the patient with diltiazem. I may add some digoxin to control her heart rate. The patient really needs to be referred to have bariatric surgery because there is no other way to deal with this condition unless she loses weight in a significant manner. I suggest deep venous thrombosis prophylaxis as you are doing and will be happy to arrange for followup upon discharge. She may benefit from Multaq 400 b.i.d. once she converts to sinus rhythm. At this time we will manage her conservatively. If she does not convert in 48 hours, we may have to put her on full dose enoxaparin and take it from there. cc: Blue Rubio MD
[2019-02-15] MEDS: LANOXIN IV SCH (18:00)
[2019-02-15] MEDS: LOVENOX SUBQ SCH (18:00)
[2019-02-15] MEDS: LEVAQUIN 500 MG/D5W 500 MG/100 ML IVPB IV SCH (18:01)
[2019-02-15] MEDS: CARDIZEM PO SCH (20:22)
[2019-02-16] MEDS: LANOXIN IV SCH ×3 (01:17→11:01)
[2019-02-16] MEDS: CARDIZEM PO SCH ×4 (01:27→20:02)
[2019-02-16] MEDS: CARDIZEM 125/NS 125 MG/125 ML IVPB IV SCH ×2 (03:19→18:23)
[2019-02-16] MEDS: DUONEB (A & A) INH SCH ×6 (03:25→23:13)
[2019-02-16 05:34] LABS: AGAP 9; BUN 16 mg/dL (8-22); CALCIUM 8.1 mg/dL (8.8-10.2); CHLORIDE 100 mmol/L (98-107); COSMO 286; CREATININE 0.8 mg/dL (0.5-0.9); ESTIMATED GFR > 60; GLUCOSE 236 mg/dL (70-104); POTASSIUM 4.6 mmol/L (3.5-5.1); SODIUM 139 mmol/L (136-145); TCO2 30 mmol/L (25-35)
[2019-02-16] MEDS: PRILOSEC PO SCH ×2 (05:36→06:12)
[2019-02-16] MEDS: SYNTHROID PO SCH ×2 (05:36→06:12)
[2019-02-16 06:19] LABS: BASO# 0.01 X1000 (0.0-0.2); BASO% 0.1 % (0.0-0.8); HEMATOCRIT 44.7 % (37.0-47.0); HEMOGLOBIN 13.8 g/dL (12.0-16.0); IMM GRAN% 1.3 % (0.0-0.5); LYMPH# 0.81 X1000 (1.2-3.4); LYMPH% 5.3 % (20.5-51.1); MCH 27.3 PG (27-31); MCHC 30.9 g/dL (33-37); MCV 88.3 FL (81-99); MONO# 0.67 X1000 (0.11-0.59); MONO% 4.4 % (1.7-9.3); MPV 10.3 FL (7.4-10.4); NEUT# 13.49 X1000 (1.4-6.5); NEUT% 88.9 % (42.2-75.2); PLT 283 X1000 (130-400); RBC 5.06 XMIL (4.2-5.4); RDW 16.1 % (11.5-14.5); WBC 15.18 X1000 (4.8-10.8)
--- NOTE | 2019-02-16 07:07 | EKG Report ---
Test Performed on : 02/16/2019 06:42:33 AM Test Reason : atrial fibrillation Blood Pressure : / mmHG Vent. Rate : 091 BPM Atrial Rate : 092 BPM P-R Int : 000 ms QRS Dur : 088 ms QT Int : 354 ms P-R-T Axes : 000 056 018 degrees QTc Int : 435 ms Atrial fibrillation. Abnormal ECG When compared with ECG of 15-FEB-2019 13:58, (Unconfirmed) No significant change was found Confirmed by Jonatan STUART, Ravinder Perez ([id number]) on 02/17/2019 8:46:04 AM
[2019-02-16 07:13] LABS: LYMPHS 2 % (21-51); SEGS 98 % (42-75)
[2019-02-16] MEDS: SOLU-MEDROL IV SCH ×2 (09:01→20:01)
[2019-02-16] MEDS: LASIX IV SCH ×2 (09:01→20:02)
[2019-02-16] MEDS: PRINZIDE 10/12.5MG PO SCH (09:01)
[2019-02-16] MEDS: ELIQUIS PO SCH ×2 (09:02→20:02)
[2019-02-16] MEDS: FLONASE NAS SCH (09:02)
[2019-02-16] MEDS: ALDACTONE PO SCH ×2 (09:02→20:02)
[2019-02-16] MEDS: ZYRTEC PO SCH (09:18)
--- NOTE | 2019-02-16 09:49 | CARDIOLOGY PROGRESS NOTE ---
DATE: 02/16/2019 CHIEF COMPLAINT: Shortness of breath, swelling, irregular heartbeat. SUBJECTIVE: Mrs. Flores says that is breathing today. She is not have any chest pain. She is still wheezing. OBJECTIVE: Vital signs: Blood pressure is 156/77, pulse 85, temperature 97.8, respirations 16. General: She is awake, alert, oriented, no distress. HEENT: Unremarkable. Chest: Bilateral wheezes. Heart: Sounds distant, irregular. Abdomen: Obese. Extremities: Showed diffuse puffiness, edema. Neurological exam: Follows commands, moves all 4 extremities. BLOOD WORK: From today, white cell count 15,000, hemoglobin 13.8. Sodium 139, potassium 4.6, BUN 16, creatinine 0.8. IMPRESSION: 1. Patient who presented with increasing dyspnea, wheezes, probably asthma attack/chronic asthma. 2. Paroxysmal atrial fibrillation. 3. Morbid obesity. 4. Hypothyroidism. 5. Hypertension. RECOMMENDATIONS: At this time, we will try to optimize her heart rate with medical therapy and we will probably have to give her full anticoagulation with Eliquis. If she does not convert to sinus rhythm, we may have to anticoagulate her with Eliquis 5 mg twice a day. Regarding her COPD, I think she is probably going to need higher doses of steroids to break it and we may want to give her some spironolactone also. cc: Blue Rubio MD
--- NOTE | 2019-02-16 12:46 | PROGRESS NOTE ---
DATE: 02/16/2019 SUBJECTIVE: This morning Ms. Flores refers to be doing a little better. She is breathing better than yesterday. She still had a few episode whereby she felt a hunger. OBJECTIVE: Vital signs: Blood pressure is 151/95, pulse is 93, respirations 16. Temperature 98 degrees. Patient was saturating about 97% on nasal cannula. General: Ms. Flores is a 53 years old female. She was sitting up at the edge of the bed, no distress. Mucosa is pink and moist. Anicteric. Acyanotic. Neck: Supple. Chest: Air entry was bilaterally reduced. There are still a few wheezes, but I think it is a lot better. Cardiovascular: Irregularly irregular. No murmurs, no rubs, no gallops. Gastrointestinal: Abdomen is soft, distended but nontender. Bowel sounds present. Extremities: No pedal edema. 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 There is no focal neurological deficit. LABORATORY DATA: WBC is 15.18, hemoglobin is 13.8, platelet count of 283. Chemistry is also reviewed. Creatine kinase is down to 410. ProBNP is up to 1332. CURRENT MEDICATIONS: Have also been reviewed. She has been started on Lasix, Cardizem drip, p.o. Cardizem, and Eliquis has been added by Cardiology. IMAGING STUDIES: There are no imaging studies this morning. ASSESSMENT: 1. Acute hypoxemic respiratory failure on presentation secondary to asthma exacerbation, improved. 2. Mild to moderate persistent bronchial asthma with exacerbation. The patient is currently on bronchodilation therapy and on weaning dose of steroids. 3. Seasonal allergies noted. Patient is on Zyrtec. 4. Hypertension is controlled. 5. Mild rhabdomyolysis. CK is on downward trend. LUPE is negative. 6. Hypothyroidism. We will continue with the levothyroxine. 7. Suspected sleep apnea. Patient is advised to follow up with sleep team. 8. Morbid obesity with BMI more than 60, weight loss management has been recommended. 9. New onset of atrial fibrillation with rapid ventricular response. The patient is on Cardizem drip and has been started on digitalized dose of digoxin and p.o. Cardizem as well. Eliquis has been started by Cardiology. 10. Heart failure with preserved ejection fraction, likely due to tachyarrhythmia. Patient has been started on diuretic therapy and will continue controlling the heart rate. In general I think Ms Flores primary presenting asthma exacerbation is under control. She is pending evaluation from Pulmonary Medicine from that regard. She is still in atrial fibrillation. The rate is slightly better than yesterday. Cardiology has seen her this morning. I think there is a plan for possible cardioversion on Thursday if the heart does not return to sinus with just medication. cc: Sesar Coppola MD MTDD
[2019-02-16] MEDS: LEVAQUIN 500 MG/D5W 500 MG/100 ML IVPB IV SCH (18:08)
--- NOTE | 2019-02-16 21:06 | PULMONOLOGY PROGRESS NOTE ---
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 HISTORY: The patient reports she has required steroids and antibiotics in the spring and the fall for wheezing for the last 5 years. She attributes this to her air-condition unit. She does report difficulty with pollen in the spring, which causes her eyes to water, rhinitis, and a sore throat. She has noticed increased wheezing over the last 3 months. Triggers for her breathing besides the change in seasons includes cigarettes, wood smoke, and strong smelling perfumes. She denies drug allergies. The patient has never had an obstructive sleep apnea evaluation. She has morbid obesity and was initially being evaluated but then canceled followup. She is now being re- evaluated for a bypass or a sleeve procedure. PHYSICAL EXAMINATION: General: Reveals a morbidly obese white female with a BMI of 60. Vital signs: Blood pressure 151/82, heart rate 96, respiratory rate 19, oxygen saturation 96% on 3 L per nasal cannula. HEENT: Pupils are equal and reactive. Oropharynx is clear. Neck: Supple. Chest: Reveals mild wheezing bilaterally. Cardiac Exam: S1, S2. Abdomen: Obese and soft. Extremities: Reveal trace to 1+ peripheral edema. LABORATORIES: The patient had mild eosinophilia on presentation with a total eosinophil count of 490. Current white blood count 15.2, hemoglobin 13.8, platelet count 283,000. IMPRESSION: A 53-year-old with: 1. Asthma exacerbation. 2. Morbid obesity. 3. Paroxysmal atrial fibrillation. 4. Mild rhabdomyolysis. 5. Hypothyroidism. 6. Hypertension. RECOMMENDATIONS: 1. Continue treatment for COPD exacerbation. The patient will need to be discharged on a steroid taper. The patient will need an inhaled corticosteroid/long-acting beta agonist at the time of discharge. She should be using this inhaler at least in the spring and the fall. 2. Agree with patient's plans to proceed with a bariatric surgery. Long-term, she will not do well if she does not get her BMI lower. 3. Recommend outpatient sleep apnea evaluation given patient's morbid obesity. cc: Chester Santana MD
[2019-02-17] MEDS: CARDIZEM PO SCH ×4 (02:48→20:34)
[2019-02-17] MEDS: DUONEB (A & A) INH SCH ×6 (03:28→23:36)
[2019-02-17] MEDS: PRILOSEC PO SCH (06:04)
[2019-02-17 06:05] LABS: BASO# 0.02 X1000 (0.0-0.2); BASO% 0.1 % (0.0-0.8); HEMATOCRIT 47.3 % (37.0-47.0); HEMOGLOBIN 14.8 g/dL (12.0-16.0); IMM GRAN# 0.28 X1000 (0.0-0.04); IMM GRAN% 1.5 % (0.0-0.5); LYMPH% 4.3 % (20.5-51.1); MCH 27.4 PG (27-31); MCHC 31.3 g/dL (33-37); MCV 87.6 FL (81-99); MONO# 0.76 X1000 (0.11-0.59); MONO% 4.1 % (1.7-9.3); MPV 10.2 FL (7.4-10.4); NEUT# 16.66 X1000 (1.4-6.5); PLT 297 X1000 (130-400); RDW 16.1 % (11.5-14.5); WBC 18.52 X1000 (4.8-10.8)
[2019-02-17] MEDS: SYNTHROID PO SCH (06:05)
[2019-02-17 06:22] LABS: AGAP 9; BUN 22 mg/dL (8-22); CALCIUM 8.8 mg/dL (8.8-10.2); CHLORIDE 94 mmol/L (98-107); COSMO 282; CREATININE 0.9 mg/dL (0.5-0.9); ESTIMATED GFR > 60; GLUCOSE 253 mg/dL (70-104); POTASSIUM 4.8 mmol/L (3.5-5.1); SODIUM 135 mmol/L (136-145); TCO2 32 mmol/L (25-35)
[2019-02-17] MEDS: ZYRTEC PO SCH (08:10)
[2019-02-17] MEDS: PRINZIDE 10/12.5MG PO SCH (08:10)
[2019-02-17] MEDS: CARDIZEM 125/NS 125 MG/125 ML IVPB IV SCH ×2 (08:10→19:39)
--- NOTE | 2019-02-17 08:10 | EKG Report ---
Test Performed on : 02/17/2019 07:04:15 AM Test Reason : atrial fibrillation Blood Pressure : / mmHG Vent. Rate : 076 BPM Atrial Rate : 214 BPM P-R Int : 000 ms QRS Dur : 090 ms QT Int : 364 ms P-R-T Axes : 000 056 018 degrees QTc Int : 409 ms Atrial fibrillation. Nonspecific ST abnormality Abnormal ECG When compared with ECG of 16-FEB-2019 06:42, (Unconfirmed) No significant change was found Confirmed by Jonatan STUART, Ravinder Perez ([id number]) on 02/17/2019 8:47:08 AM
[2019-02-17] MEDS: ELIQUIS PO SCH ×2 (08:11→20:34)
[2019-02-17] MEDS: ALDACTONE PO SCH ×2 (08:11→20:34)
[2019-02-17] MEDS: LANOXIN IV SCH (08:15)
[2019-02-17] MEDS: SOLU-MEDROL IV SCH ×2 (08:15→20:34)
[2019-02-17] MEDS: FLONASE NAS SCH (08:15)
[2019-02-17] MEDS: LASIX IV SCH ×2 (08:16→20:34)
--- NOTE | 2019-02-17 09:53 | CARDIOLOGY PROGRESS NOTE ---
DATE: 02/17/2019 CHIEF COMPLAINT: Shortness of breath, irregular heartbeat. SUBJECTIVE: Ms. Flores is breathing better today. She is able to expand her lungs better without discomfort. She is coughing up still some phlegm. OBJECTIVE: VITAL SIGNS: Blood pressure is 148/81, temperature 97.7 degrees, pulse 66, respirations 16. GENERAL: She is awake, alert, oriented, no distress. HEENT: Unremarkable. CHEST: Sounds much clearer today. HEART: Sounds are irregularly irregular. Rate is controlled. ABDOMEN: Obese. EXTREMITIES: Showed 1+ brawny edema. NEUROLOGICAL: Follows commands and moves all extremities. BLOOD WORK: Sodium 135, potassium 4.8, BUN 22, creatinine 0.9. White cell count 18,520, hemoglobin 14.8, hematocrit 47.3%. Twelve lead EKG was done today and shows atrial fibrillation, rate is 76 beats per minute. No ischemic changes noted. IMPRESSION: 1. Patient has developed persistent atrial fibrillation during this bronchial asthma attack. She has acute bronchitis. 2. Morbid obesity. 3. Likely sleep apnea syndrome. RECOMMENDATIONS: At this time, I will suggest to continue digoxin and Cardizem. We will recommend cardioversion because she does not seem like she is going to convert. We will give her another 24 hours and if by tomorrow morning she has not converted spontaneously, we will proceed with cardioversion in preparation for discharge. I have initiated Eliquis 5 mg twice a day. We will see how she does. I am going to do a JOHN to basically further risk stratify her risks for thromboembolic phenomenon. We have discussed at length the need for bariatric surgery because evidently this patient at this time has reached the point where the obesity is extremely detrimental to her health. Her body mass index is 60.7 and she will not be able to lose weight just by dieting. Further recommendation will be forthcoming. cc: Blue Rubio MD
--- NOTE | 2019-02-17 10:02 | PROGRESS NOTE ---
DATE: 02/17/2019 SUBJECTIVE: This morning Ms. Flores refers to be feeling a lot better. The sensation of shortness of breath has significantly improved, and she has been walking more. OBJECTIVE: Vital Signs: Blood pressure 148/81, pulse 88, respirations 20, and temperature 97.7 degrees. General: Ms. Flores is a 53-year-old morbidly obese female. She was sitting at the edge of the bed in no distress. HEENT: Mucosa is pink and moist. Anicteric. Acyanotic. Neck: Supple. Chest: Good air entry bilaterally. There was no wheezing or rhonchi. No crepitations. Cardiovascular: Irregularly irregular. No murmurs, no rubs, no gallops. GI: Abdomen is soft and distended but nontender. Bowel sounds present. No hepatosplenomegaly. Extremities: No pedal edema. Distal pulses present. 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 There is no focal neurological deficit. LABORATORY: The patient's I's and O's, urine output was 5100. She is currently negative balance of over 11,000. CURRENT MEDICATIONS: Also been reviewed. CURRENT LABORATORY: WBC 18.52, hemoglobin 14.8, platelet count of 297,000. Chemistry is also reviewed, and is completely unremarkable. DIAGNOSTIC: The EKG this morning continues to show atrial fibrillation, but the rate is much better controlled. ASSESSMENT: 1. Acute hypoxemic respiratory failure on presentation secondary to asthma exacerbation improved. 2. Mild to moderate persistent bronchial asthma with exacerbation. Patient is currently on bronchodilation therapy, and weaning dose of steroids. She is going to be needing long-term inhaler for persistent asthma. 3. Seasonal allergies noted. 4. Hypertension currently controlled. 5. Mild rhabdomyolysis. CK has gone down to 410 yesterday. 6. Hypothyroidism. Patient continues to be on levothyroxine. 7. Suspected obstructive sleep apnea. The patient is advised to follow up with sleep team for sleep studies. 8. Morbid obesity with BMI of more than 60. Weight loss management has been recommended. 9. New onset of atrial fibrillation and RVR. Patient continues to be on Cardizem drip. The rate is a lot better. However, patient continues to be in atrial fibrillation. There is a plan to cardiovert her tomorrow. The patient is on Eliquis. 10. Congestive heart failure with preserved ejection fraction secondary to tachyarrhythmia. We will continue to control the rhythm. The patient is also on Lasix and spironolactone. cc: Sesar Coppola MD
[2019-02-17] MEDS: LEVAQUIN 500 MG/D5W 500 MG/100 ML IVPB IV SCH (17:50)
--- NOTE | 2019-02-17 20:27 | PULMONOLOGY PROGRESS NOTE ---
DATE: 02/17/2019 SUBJECTIVE: The patient is awake, alert. She feels better. She was in the bathroom and was ambulating in the room. The patient's oxygen saturation was 98% when I checked it after she returned to the bed, without replacing oxygen. OBJECTIVE: BP 133/77, heart rate 76, respiratory rate 19. HEENT: Pupils are equal and reactive. Oropharynx appears clear. Neck is supple. Chest reveals good air entry bilaterally with minimal wheezing. Cardiac exam: S1, S2. Abdomen is obese and soft. Extremities are without edema. IMPRESSION: 1. A 53-year-old with asthma exacerbation. 2. Atrial fibrillation. 3. Super morbid obesity with a body mass index greater than 60. 4. Acute hypoxemic respiratory failure. DISCUSSION: A 53-year-old with problems outlined above. Her chest exam has significantly improved. She will need an inhaled corticosteroid with the addition of a long-acting beta agonist, along with a steroid taper at the time of discharge. The patient is aware that she needs to actively pursue a bariatric intervention for her morbid obesity. RECOMMENDATIONS: 1. Continue oxygen, but wean as tolerated. 2. Continue steroids. Would place the patient on an inhaled corticosteroid/long-acting beta agonist at the time of discharge, the selection primarily dictated by cost and insurance coverage. 3. Proceed with bariatric evaluation. cc: Chester Santana MD
[2019-02-18] MEDS: DUONEB (A & A) INH SCH ×6 (02:45→23:23)
[2019-02-18] MEDS: CARDIZEM PO SCH ×4 (03:03→14:12)
[2019-02-18 05:41] LABS: BASO# 0.02 X1000 (0.0-0.2); BASO% 0.1 % (0.0-0.8); HEMATOCRIT 48.1 % (37.0-47.0); HEMOGLOBIN 15.2 g/dL (12.0-16.0); IMM GRAN# 0.26 X1000 (0.0-0.04); IMM GRAN% 1.3 % (0.0-0.5); LYMPH# 0.81 X1000 (1.2-3.4); MCH 27.6 PG (27-31); MCHC 31.6 g/dL (33-37); MCV 87.3 FL (81-99); MONO# 0.95 X1000 (0.11-0.59); MONO% 4.7 % (1.7-9.3); MPV 10.4 FL (7.4-10.4); NEUT# 18.26 X1000 (1.4-6.5); NEUT% 89.9 % (42.2-75.2); PLT 310 X1000 (130-400); RBC 5.51 XMIL (4.2-5.4); RDW 16.1 % (11.5-14.5)
[2019-02-18 06:00] LABS: AGAP 12; ALB/GLOB RATIO 1.2; ALBUMIN 3.6 g/dL (3.5-5.0); ALKALINE PHOSPHATASE 54 U/L (32-104); BUN 27 mg/dL (8-22); CALCIUM 8.9 mg/dL (8.8-10.2); CHLORIDE 95 mmol/L (98-107); CK TOTAL 108 U/L (24-173); COSMO 290; CREATININE 0.9 mg/dL (0.5-0.9); ESTIMATED GFR > 60; GLUCOSE 260 mg/dL (70-104); GOT 12 U/L (10-30); GPT 29 U/L (10-36); POTASSIUM 4.8 mmol/L (3.5-5.1); SODIUM 138 mmol/L (136-145); TCO2 31 mmol/L (25-35); TOTAL BILIRUBIN 0.62 mg/dL (0.20-1.00); TOTAL PROTEIN 6.7 g/dL (6.3-8.3)
[2019-02-18] MEDS: PRILOSEC PO SCH (06:46)
[2019-02-18] MEDS: PRINZIDE 10/12.5MG PO SCH ×2 (06:47→09:32)
[2019-02-18] MEDS: ALDACTONE PO SCH ×3 (06:47→20:41)
[2019-02-18] MEDS: LANOXIN IV SCH ×2 (06:47→09:32)
[2019-02-18] MEDS: SOLU-MEDROL IV SCH (06:48)
[2019-02-18] MEDS: SYNTHROID PO SCH (06:49)
[2019-02-18] MEDS: ELIQUIS PO SCH ×3 (06:52→20:41)
--- NOTE | 2019-02-18 07:25 | EKG Report ---
Test Performed on : 02/18/2019 06:39:31 AM Test Reason : atrial fibrillation Blood Pressure : / mmHG Vent. Rate : 074 BPM Atrial Rate : 131 BPM P-R Int : 000 ms QRS Dur : 090 ms QT Int : 378 ms P-R-T Axes : 000 064 012 degrees QTc Int : 419 ms Atrial fibrillation. Abnormal ECG When compared with ECG of 17-FEB-2019 07:04, No significant change was found Confirmed by Jonatan STUART, Ravinder Perez ([id number]) on 02/20/2019 4:38:30 PM
[2019-02-18 08:08] LABS: INR 1.06; PROTIME 14.6 Seconds (11.0-16.0); PTT 28.1 Seconds (22.3-41.8)
[2019-02-18] MEDS ORDERED: XYLOCAINE-MPF 2% ONE ×2 (08:24→08:25)
[2019-02-18] MEDS ORDERED: DIPRIVAN 1% ONE (08:40)
[2019-02-18] MEDS ORDERED: XYLOCAINE 2% VISCOUS ONE (08:42)
[2019-02-18] MEDS ORDERED: CLAVE TWINSITE 32 IN 11959 ONE (08:51)
[2019-02-18] MEDS ORDERED: NS 1,000 ML ONE (08:51)
[2019-02-18] MEDS ORDERED: ANESTHESIA PB SET 88 IN 5742 ONE (08:51)
[2019-02-18] MEDS: FLONASE NAS SCH (09:32)
--- NOTE | 2019-02-18 10:19 | CARDIAC CATH REPORT ---
DATE: 02/18/2019 PROCEDURE: Direct current cardioversion procedure. INDICATION: Persistent atrial fibrillation. DESCRIPTION: The patient was brought to the Cardiac Family Preservation Worker in a fasting state. She was given intravenous propofol under the anesthesia services. The patient had received a JOHN that showed no evidence of thrombus. Pads were positioned in anterior and posterior location. Once the patient was properly sedated, she received a single synchronized counter shock to the chest cage consisting of 150 olson per second. We used a biphasic system. She converted from atrial fibrillation to normal sinus rhythm. She woke up from the effects of the anesthesia without deficits. SUMMARY: In summary, there was successful cardioversion from atrial fibrillation into sinus rhythm. RECOMMENDATION: At this time since this is the first event and it happened in the midst of bronchial asthma decompensation, we will keep her on low dose diltiazem and digoxin. We will follow her at the office and then we will determine if she needs to be placed on long-term antiarrhythmics. The patient may be discharged home at the criteria of the primary service. cc: Blue Rubio MD
[2019-02-18] MEDS: LASIX IV SCH ×2 (10:21→20:42)
--- NOTE | 2019-02-18 10:38 | Transesophageal Echocardiogram ---
DATE: 02/18/2019 PROCEDURE: Transesophageal echocardiogram. INDICATION: Patient with persistent atrial fibrillation. She has been in atrial fibrillation for a few days now. JOHN was recommended to further reassess her risk for thromboembolic phenomenon. The patient was consented prior to being brought to the Cardiac End Trimmer. DESCRIPTION: The patient was brought to the Cardiac End Trimmer in a fasting state. Her throat was anesthetized with HurriCaine and viscus lidocaine. The patient received intravenous propofol under the anesthesia services. The esophagus was intubated without difficulty. Multiple views of the cardiac structures were obtained. SUMMARY OF THE FINDINGS: 1. The left atrium and the appendage were well visualized. There is no evidence of thrombus. The flow velocity within the appendage is normal. 2. The interatrial septum is intact. We injected agitated saline and there was no evidence of shunt. The right atrium was unremarkable. 3. The tricuspid valve was normal. 4. The pulmonary valve shows a normal flow pattern. 5. The aortic valve has 3 cusps and they open normally. Color flow mapping is unremarkable. 6. The mitral valve looks normal. Color flow mapping is unremarkable. 7. The left ventricle shows normal function. The ejection fraction is estimated at 60%. 8. The ascending and descending thoracic aorta shows no significant abnormality. 9. The pulmonary venous flow shows a normal pattern on both right and left pulmonary veins. CONCLUSION: In summary, this transesophageal echocardiogram shows no evidence of thrombus within the left-sided cardiac chamber. No evidence of endocardial vegetation. Cardioversion may be carried out with low risk of complications. cc: Blue Rubio MD
[2019-02-18] MEDS: PREDNISONE PO SCH (12:48)
[2019-02-18] MEDS: ZYRTEC PO SCH (12:48)
--- NOTE | 2019-02-18 13:59 | EKG Report ---
Test Performed on : 02/18/2019 11:51:45 AM Test Reason : post cardioversion Blood Pressure : / mmHG Vent. Rate : 076 BPM Atrial Rate : 076 BPM P-R Int : 178 ms QRS Dur : 086 ms QT Int : 358 ms P-R-T Axes : 000 036 103 degrees QTc Int : 402 ms Sinus rhythm. with occasional premature ventricular complexes. Nonspecific ST and T wave abnormality Abnormal ECG When compared with ECG of 18-FEB-2019 06:39, (Unconfirmed) Sinus rhythm. has replaced Atrial fibrillation. Nonspecific T wave abnormality no longer evident in Inferior leads Nonspecific T wave abnormality now evident in Lateral leads Confirmed by Jonatan STUART, Ravinder Perez ([id number]) on 02/20/2019 4:38:55 PM
[2019-02-18] MEDS ORDERED: CARDIZEM CD PO SCH (14:15)
--- NOTE | 2019-02-18 16:20 | PROGRESS NOTE ---
DATE: 02/18/2019 SUBJECTIVE: This morning Ms. Flores refers to be doing fairly okay. She however still says she had an episode where she is having a little shortness of breath. She just finished undergoing JOHN with electrical cardioversion and the heart is now in sinus rhythm. OBJECTIVE: Vital signs: Blood pressure is 150/78, pulse 84, respirations 17, temperature 98.0 degrees. The patient is saturating 95% on 4 L. General: Ms. Do is a 53-year-old female. She is in bed in no distress. HEENT: Mucosa is pink and moist. Anicteric. Acyanotic. Neck: Supple. Chest: Air entry is bilaterally reduced. There is mild air entry reduced especially to the left posterior lung field with some wheezing and rhonchi. Cardiovascular: Regular rate and rhythm. There is no murmurs, no rubs, no gallops. Abdomen: Soft, distended but nontender. Bowel sounds present. Extremities: No pedal edema. PLASTERER SPOT: Patient is awake, alert, and oriented. There is no focal neurological deficit. LABORATORY DATA: WBC is up to 20.30, hemoglobin is 15.3, platelet count of 310,000. Chemistry is also reviewed. Completely normal. Glucose is 260 early this morning. IMAGING: No imaging studies. ASSESSMENT: 1. Acute hypoxemic respiratory failure on presentation secondary to asthma exacerbation improved. 2. Mild to moderate persistent bronchial asthma with exacerbation on presentation. The patient is on tapering dose of steroids, bronchodilation therapy. 3. Seasonal allergies noted. 4. Hypertension controlled. 5. Mild rhabdomyolysis resolved. 6. Hypothyroidism will continue with the levothyroxine. 7. Suspected obstructive sleep apnea. 8. Morbid obesity with body mass index more than 60, weight loss management has been advised. 9. New onset of atrial fibrillation, rapid ventricular rate. The patient is status post transesophageal echocardiogram with cardioversion is currently in sinus rhythm. We will continue with the Cardizem p.o. and digoxin. The patient is also on Eliquis for stroke prophylaxis. 10. Congestive heart failure with preserved ejection fraction secondary to tachyarrhythmias. The patient is currently euvolemic. cc: Sesar Coppola MD
[2019-02-18] MEDS: LEVAQUIN 500 MG/D5W 500 MG/100 ML IVPB IV SCH (17:53)
[2019-02-18] MEDS ORDERED: MIRALAX PO PRN (19:04)
--- NOTE | 2019-02-18 19:04 | PULMONOLOGY PROGRESS NOTE ---
DATE: 02/18/2019 SUBJECTIVE: The patient underwent cardioversion earlier this morning and currently appears to be in sinus rhythm. She is without specific complaints. OBJECTIVE: Vital Signs: Blood pressure 150/78, heart rate 84, respiratory rate 17, oxygen saturation 95% on 2 liters per nasal cannula. HEENT: Pupils are equal and reactive. The oropharynx is clear. Neck: Supple. Chest: Reveals occasional wheeze in the lung bases. Cardiac: S1 and S2. Abdomen: Obese and soft. Extremities: Without edema. LABORATORY DATA: No new microbiology data. White blood count 20,000, hemoglobin 15.2, platelet count 310,000. Sodium 138, potassium 4.8, chloride 95, bicarbonate 27, BUN 0.9. IMPRESSION: A 53-year-old with: 1. Morbid obesity and a BMI greater than 60. 2. Acute asthma exacerbation. 3. New-onset atrial fibrillation. 4. Acute hypoxemic respiratory failure. DISCUSSION: A 53-year-old with problems outlined above. The patient is now back in sinus rhythm. Her breathing has improved, and she has faint wheezing present. RECOMMENDATIONS: 1. Initiate an inhaled corticosteroid/long-acting beta agonist. I will initiate Symbicort, but this can be changes as an outpatient depending on insurance coverage. 2. Agree with prednisone 20 mg per day. Recommend a 2-week taper at the time of discharge. 3. Recommend proceeding with bariatric evaluation as patient has planned. 4. Recommend outpatient sleep apnea evaluation. cc: Chester Santana MD
[2019-02-18] MEDS: SYMBICORT 160/4.5 MICROGM INHALER INH SCH (19:30)
[2019-02-18] MEDS ORDERED: CARDIZEM PO SCH (20:00)
[2019-02-19] MEDS: DUONEB (A & A) INH SCH ×3 (03:17→11:14)
[2019-02-19] MEDS: SYNTHROID PO SCH (06:36)
[2019-02-19] MEDS: PRILOSEC PO SCH (06:36)
[2019-02-19] MEDS: SYMBICORT 160/4.5 MICROGM INHALER INH SCH (08:00)
[2019-02-19] MEDS: ZYRTEC PO SCH (08:29)
[2019-02-19] MEDS: LASIX IV SCH (08:29)
[2019-02-19] MEDS: LANOXIN IV SCH (08:29)
[2019-02-19] MEDS: PRINZIDE 10/12.5MG PO SCH (08:29)
[2019-02-19] MEDS: ALDACTONE PO SCH (08:29)
[2019-02-19] MEDS: PREDNISONE PO SCH (08:29)
[2019-02-19] MEDS: FLONASE NAS SCH (08:29)
[2019-02-19] MEDS: ELIQUIS PO SCH (08:29)
[2019-02-19] MEDS ORDERED: CARDIZEM CD PO SCH (09:00)
[2019-02-19 11:07] VITALS: BP 134/73
[2019-02-19] MEDS ORDERED: PNEUMOVAX 23 IM ONE (13:43)
--- NOTE | 2019-02-19 14:53 | DISCHARGE SUMMARY ---
ADMISSION DATE: 02/11/2019 DISCHARGE DATE: 02/19/2019 DISPOSITION: Is home. FOLLOWUP: Will be 1. Dr. Estevez. 2. Dr. Victor. 3. Dr. Santana. INVASIVE PROCEDURES: A JOHN with electrical cardioversion was done by Dr. Rubio. CONSULTATION: Pulmonary Medicine was consulted. Patient was seen initially by Dr. Choi. Care was transitioned to Dr. Santana. Cardiology was also consulted. The patient was seen by Dr. Rubio. IMAGING STUDIES OF SIGNIFICANCE: A chest x-ray was initially done on admission which showed no evidence of acute disease. An echocardiogram showed an ejection fraction of 60% with no obvious wall abnormality. A CTA of the lungs showed mild segmental atelectasis at the base. There was no PE. ADMISSION DIAGNOSIS: 1. Bronchial asthma exacerbation. 2.Rhabdomyolysis. 3. Hypothyroidism. 4. Hypertension. 5. Morbid obesity. DIAGNOSIS AT THE TIME OF DISCHARGE: 1. Acute hypoxemic respiratory failure on presentation secondary to asthma exacerbation improved. 2. Mild to moderate persistent bronchial asthma with exacerbation on presentation improved. 3. Seasonal allergies. 4. Hypertension. 5. Mild rhabdomyolysis resolved. 6. Hypothyroidism. 7. Suspected obstructive sleep apnea. Patient advised to follow up with sleep team. 8. Morbid obesity with body mass index of 60.7, weight loss management has been advised. 9. New onset of atrial fibrillation with rapid ventricular response. Patient is status post JOHN with electrical cardioversion. She has been observed 24 hours in hospital. The heart continues to be in sinus after the cardioversion. 10. Congestive heart failure with preserved ejection fraction due to tachyarrhythmias, stable. DISCHARGE MEDICATIONS: 1. Levothyroxine 88 mcg p.o. daily. 2.Lisinopril/hydrochlorothiazide 1 tablet daily. 3. Spironolactone 25 mg b.i.d. 4. Cardizem CD 300 mg daily. 5. Digoxin 125 mcg p.o. daily. 6. Apixaban 5 mg b.i.d. 7. Omeprazole 40 mg daily. 8. Advair 1 puff b.i.d. daily. PRESENTING COMPLAINT: Wheezing. HISTORY OF PRESENTING COMPLAINT: Ms Flores is 53 years ago morbidly obese female with a BMI of 60.7. Has a past history of hypertension, hypothyroidism, obesity and bronchial asthma. The patient denies any smoking history, presented to the emergency department because of shortness of breath and wheezing. On presentation Ms. Flroes was found to have initial O2 saturation of about 94%. She was put on oxygen and was given some breathing treatment which did not resolve with the emergency room management. She was subsequently admitted for further medical care. HOSPITAL COURSE: Ms Flores was admitted to the [facility], initially started on bronchodilation therapy and IV steroids. Her lung symptoms progressively got better, however during the course of the hospital stay she developed atrial fibrillation, RVR and Cardizem drip and digoxin were all started. However, over 48 to 72 hour time period the heart would still remain in atrial fibrillation so Cardiology was consulted and the decision was made to do a JOHN with cardioversion. This was successfully done yesterday by Dr. Rubio. Patient has been observed 24 hours after JOHN cardioversion. Her heart rate continues to be sinus with occasional PVCs and is also a rate of about 90. She refers to be feeling a lot better. Wheezing has completely improved. She has been seen during the hospital course by both Pulmonary Medicine and Cardiology. This morning she feels a lot better and she thinks she can be discharged. Her current vitals blood pressure is 149/71, pulse is 74, respiration is 18, temperature 97.8 degrees. Physical exam is fairly stable, morbidly obese with a BMI of 60.7. The chest there is good air entry bilateral. Some faint wheezing bilateral but for most part sounds a whole lot better than day before. Ms. Flores is clinically stable. She will be discharged. All the discharge instructions have been discussed with her. We did stress the important to have sleep studies to make an official diagnosis of obstructive sleep apnea and treat it accordingly. We have also discussed extensively the need for weight loss management which we think will go a long way to help with all her current ailments. All the instructions have been discussed with Ms Flores, the [id number] was also at the bedside. Both voiced understanding. TIME SPENT: 35 minutes. cc: Blue Rubio MD [facility]
--- NOTE | 2019-02-19 15:22 | PULMONOLOGY PROGRESS NOTE ---
DATE: 02/19/2019 SUBJECTIVE: The patient is awake, alert, and conversant. She remains in sinus rhythm. She has been ambulating short distances today. She reports her breathing has continued to improve. OBJECTIVE: Vital Signs: The patient has been afebrile for the last 24 hours. Blood pressure 134/73, heart rate 76, respiratory rate 18, oxygen saturation 93%. HEENT: Pupils are equal and reactive. Oropharynx is clear. Neck: Supple. Chest: Faint wheezing bilaterally. Cardiac: S1, S2. Abdomen: Obese and soft. Extremities: Without edema. LABORATORY DATA: No new chemistries or CBC today. IMPRESSION: A 53-year-old with: 1. Morbid obesity and a body mass index greater than 60. 2. Acute asthma exacerbation. 3. New onset atrial fibrillation, status post cardioversion. 4. Acute hypoxemic respiratory failure. DISCUSSION: Patient with problems outlined above. She continues to improve. She does appear to be a candidate for discharge today. PLAN: 1. Taper prednisone over a 2 week period as outlined in the note on 02/18/2019. 2. Initiate Symbicort 160/4.5 two puffs twice a day. She has a sample at the bedside. The patient's insurance apparently will cover generic Advair and this can be discussed at her follow-up visit in my office. 3. Recommend a bariatric evaluation as patient has scheduled. 4. Recommend outpatient sleep evaluation. 5. Follow up in my office in 2 weeks. cc: Chester Santana MD
--- NOTE | 2019-02-21 07:34 | EKG Report ---
Test Performed on : 02/19/2019 09:27:45 AM Test Reason : Rhythm Check Blood Pressure : / mmHG Vent. Rate : 087 BPM Atrial Rate : 087 BPM P-R Int : 160 ms QRS Dur : 092 ms QT Int : 354 ms P-R-T Axes : 005 033 028 degrees QTc Int : 425 ms Normal sinus rhythm. Normal ECG When compared with ECG of 18-FEB-2019 11:51, (Unconfirmed) premature ventricular complexes. are no longer present Nonspecific T wave abnormality now evident in Inferior leads Nonspecific T wave abnormality no longer evident in Lateral leads Confirmed by Jonatan STUART, Ravinder Perez ([id number]) on 02/21/2019 7:58:46 AM
--- NOTE | 2019-02-22 07:30 | PROVIDER DOCUMENTATION ---
This chart was entered by Heather Sr Scribe, acting as scribe for Elliott López MD. HPI-Respiratory General - General Chief Complaint: Shortness of Breath Stated Complaint: SOB,WHEEZING Time Seen by Provider: 02/11/19 13:48 Source: patient, family Allergies/Adverse Reactions: Patient Allergies Allergy/AdvReac Type Severity Reaction Status Date / Time No Known Allergies Allergy Verified 02/11/19 15:56 Home Medications: Home Medication List Medication Instructions Recorded Confirmed Last Taken Type Levothyroxine [Synthroid] 1 tab PO DAILY 02/11/19 02/11/19 Unknown History Lisinopril/Hydrochlorothiazide 1 tab PO DAILY 02/11/19 02/11/19 Unknown History [Lisinopril-Hctz 20-25 mg Tab] Apixaban [Eliquis] 5 mg PO BID #120 tab 02/19/19 Unknown Rx Diltiazem C.d. [Cardizem Cd] 300 mg PO DAILY #120 cap 02/19/19 Unknown Rx Fluticasone Propion/Salmeterol 1 puff INHALATION BID #1 blst.w.dev 02/19/19 Unknown Rx [Fluticasone-Salmeterol 250-50] Omeprazole [Prilosec] 40 mg PO DAILY@0700 #30 cap 02/19/19 Unknown Rx Prednisone 20 mg PO DAILY #5 tab 02/19/19 Unknown Rx Spironolactone [Aldactone] 25 mg PO BID #60 tab 02/19/19 Unknown Rx - History of Present Illness-Resp Nature of Presenting Problem: 53 yowf presents to the ed with c/o worsening sob with wheezing. pt sts sx onset 1.5 months prior but became worse in last 2 days. pt is speaking in 3-4 word s entences and is wheezing loudly. pt sts "this happens ever year but this time it is worse" Quality of Pain: reports: fullness Severity in ED: reports: moderate Onset/Duration: reports: other (1.5month) Timing: reports: still present, constant, getting worse Cough Quality/Degree: reports: no cough Episode Frequency: occasional episodes Current Respiratory Medication Therapy: Initiated see nurses note Modifying Factors: improves with: oxygen, sitting upright. worse with: exertion, lying down Associated Symptoms: reports: hurts to breathe, shortness of breath, wheezing. denies: dizziness, fever/chills Similar Symptoms Previously?: Yes (asthma) Recently seen or treated by another doctor?: No Review of Systems - Adult - REVIEW OF SYSTEMS - ADULT Constitutional: denies: chills, fever Eyes: reports: no symptoms reported Ears, Nose, Mouth & Throat: reports: no symptoms reported Cardiovascular: reports: see HPI, orthopnea. denies: chest pain, syncope Respiratory: reports: see HPI, dyspnea on exertion, shortness of breath, wheezing Gastrointestinal: denies: diarrhea, nausea, vomiting Genitourinary: reports: no symptoms reported Musculoskeletal: denies: back pain, neck pain Integumentary: reports: no symptoms reported Neurological: reports: no symptoms reported Psychiatric: reports: no symptoms reported Endocrine: reports: no symptoms reported Hematologic/Lymphatic: reports: no symptoms reported Allergic/Immunologic: reports: no symptoms reported All Other Systems: Reviewed and Negative Past History - Adult - PAST MEDICAL HISTORY-ADULT Review of Records: reports: Nursing Assessment Review, Medications Reviewed Major Childhood Illnesses: reports: denies history Cardiovascular: reports: HTN Respiratory: reports: asthma, bronchitis Gastrointestinal: reports: denies history Obstetrical/Gynecological: reports: denies history Genitourinary: reports: denies history Musculoskeletal: reports: denies history Neurological: reports: denies history Psychiatric: reports: denies history Endocrine/Immune: reports: thyroid disorder Other Conditions: reports: denies history - PRIOR SURGERIES/PROCEDURES Surgical/Procedure History: reports: reviewed, not pertinent - IMMUNIZATION STATUS Childhood Immunizations: See Nurse Assessment Flu Vaccine: See Nurse Assessment - FAMILY HISTORY Family History: reviewed, not pertinent - SOCIAL HISTORY Smoking: non-smoker Substance Use: denies Alcohol Use Frequency: never Living Situation: family Physical Exam-General - PHYSICAL EXAM-ADULT Initial Vital Signs Reviewed: Yes - CONSTITUTIONAL General Appearance: appears well, alert, moderate distress, obese - EYES Eyes: PERRL/EOMI, pink conjunctivae - HEAD, EARS, NOSE, MOUTH & THROAT HENMT: moist mucous membranes, normal ENT inspection - NECK Neck: non-tender, full range of motion, supple, normal inspection - RESPIRATORY Respiratory: chest non-tender, respiratory distress, wheezing, increased rate (24). negative: crackles, rales, rhonchi, stridor - CARDIOVASCULAR Cardiovascular: normal peripheral pulses, regular rate, rhythm - GASTROINTESTINAL (ABDOMEN) Abdominal Exam: normal bowel sounds, non tender, soft - LYMPHATIC Lymphatic: no adenopathy - MUSCULOSKELETAL Back Exam: normal inspection, no CVA tenderness, no vertebral tenderness Extremity: normal range of motion, non-tender, normal gait, normal inspection, no pedal edema, no calf tenderness, normal capillary refill, pelvis stable - SKIN Integumentary: normal color, normal turgor, warm/dry - NEUROLOGIC Neurologic: grossly normal, no motor/sensory deficits - PSYCHIATRIC Psych/Mental Status: normal mood/affect, normal thought content, normal thought process, oriented x 3 Progress - PLAN OF CARE/RESULTS Progress/Plan/Lab Results: Orders Category Date Time Status Admit - [facility] Routine AdmDCTranf 02/11/19 18:28 Active Activity Type EVERY SHIFT NURSING Care 02/11/19 18:29 Active Nursing- MD Consult Request 0800 Care 02/11/19 21:45 Completed Use Oxygen.Protocol ORDERED Care 02/11/19 21:46 Completed Vital Signs Order Q 4-HR ASSESS Care 02/11/19 18:29 Completed Miscellaneous Diet Routine Diet 02/11/19 22:02 Completed Regular Diet Diet 02/11/19 18:29 Completed CHEST-1 VIEW [RAD] Stat Exams 02/11/19 13:52 Completed cxr [CHEST-1 VIEW] [RAD] Routine Exams 02/12/19 06:00 Completed ABG [RESP] Routine Lab 02/11/19 23:11 Completed ABG [RESP] Routine Lab 02/12/19 05:37 Completed BMP [BASIC METABOLIC PANEL] [CHEM] Routine Lab 02/12/19 05:08 Completed CBC WITH DIFF [HEME] Routine Lab 02/12/19 05:08 Completed CBC WITH DIFF [HEME] Stat Lab 02/11/19 14:56 Completed CK PROFILE [SP CHEM] Lab 02/11/19 20:11 Completed CK PROFILE [SP CHEM] Lab 02/12/19 02:30 Completed CK PROFILE [SP CHEM] Lab 02/12/19 11:35 Completed CK TOTAL [CHEM] Stat Lab 02/12/19 05:08 Completed COMPREHENSIVE METABOLIC PANEL [CHEM] Stat Lab 02/11/19 14:56 Completed FREE T4 Routine Lab 02/11/19 20:11 Completed MAGNESIUM [CHEM] Stat Lab 02/11/19 14:56 Completed TROPONIN T Lab 02/11/19 20:11 Completed TROPONIN T Lab 02/12/19 02:30 Completed TROPONIN T Lab 02/12/19 11:35 Completed TSH Routine Lab 02/12/19 05:08 Completed 0.9% Sodium Chloride Inj [Ns] 1,000 ml Med 02/11/19 18:45 Discontinued IV 75 mls/hr Albuterol 2.5MG/Ipratrop 0.5MG [Duoneb (A & A)] Med 02/11/19 13:52 Discontinued 3 ml INH NOW ONE Albuterol 2.5MG/Ipratrop 0.5MG [Duoneb (A & A)] Med 02/11/19 16:32 Discontinued 3 ml INH NOW ONE Albuterol 2.5MG/Ipratrop 0.5MG [Duoneb (A & A)] Med 02/11/19 18:31 Discontinued 3 ml INH Q2H PRN PRN Albuterol 2.5MG/Ipratrop 0.5MG [Duoneb (A & A)] Med 02/11/19 19:30 Discontinued 3 ml INH RTQ4H Amlodipine [Norvasc] Med 02/11/19 20:32 Discontinued 10 mg PO NOW ONE Enoxaparin [Lovenox] Med 02/11/19 18:45 Discontinued 40 mg SUBQ Q24H LISINOpril/HCTZ [Prinzide 10/12.5MG] Med 02/12/19 09:00 Discontinued 2 each PO DAILY Levofloxacin 500 mg/D5w [Levaquin 500 mg/D5w] Med 02/11/19 18:45 Discontinued 500 mg in 100 ml IV Q24H Levothyroxine [Synthroid] Med 02/12/19 07:00 Discontinued 88 microgm PO DAILY@0700 Methylprednisolone Sod Succ [Solu-Medrol] Med 02/11/19 18:45 Discontinued 60 mg IV Q8H Omeprazole [Prilosec] Med 02/12/19 07:00 Discontinued 40 mg PO DAILY@0700 Prednisone Med 02/11/19 13:52 Discontinued 60 mg PO NOW ONE Aerosol Treatments Routine Oth 02/11/19 13:52 Completed Aerosol Treatments Routine Oth 02/11/19 16:32 Completed Aerosol Treatments Routine Oth 02/11/19 18:32 Completed Aerosol Treatments Stat Oth 02/11/19 13:52 Completed Aerosol Treatments Stat Oth 02/11/19 16:32 Completed Aerosol Treatments Stat Oth 02/11/19 18:32 Completed EKG [EKG] Stat Ther 02/11/19 12:56 Draft Transfer/Admit Order [TRANSFER] Routine Transfer 02/11/19 21:48 Completed Result Diagrams: 02/18/19 05:00 02/18/19 05:00 - REASSESSMENT Reassessment #1 Time Reassessed: 13:58 Status: unchanged Reassessment Comment: still wheezing after neb tx Reassessment #2 Time Reassessed: 14:36 Status: unchanged Reassessment Comment: still wheezing after 2nd neb tx Reassessment #3 Time Reassessed: 17:03 Status: unchanged (patient given 2 nebs and steroids, still w/ coarse wheezing: will consult for admission) Reassessment Comment: still wheezng and sob - EKG 1 Time of EKG reading by physician:: 12:56 EKG Read and Signed by:: Elliott López EKG Interpretation (*Must complete 3 of following elements*): Normal (borderline) Rate: 86 Rhythm: sinus rhythm with pvc [place]: normal QRS: RBB (incomplete), LVH, PVC's ND Interval: normal ST Wave: normal - XRAY 1 XRAY: Bilateral XRAY Study: Chest Impression: See EMR Report (EXAM: CHEST-1 VIEW - 02/11/2019 HISTORY: wheezing TECHNIQUE: Portable chest COMPARISON: 09/03/2011 FINDINGS: Heart size is normal. There is right upper lobe calcified granuloma from old granulomatous disease similar to prior. There is symmetrical haziness at the bilateral lateral lung bases which appears to relate to artifact from overlying breast shadows. Lungs otherwise appear clear. The lungs do not appear substantially hyperexpanded. There is no pleural effusion or pneumothorax identified. IMPRESSION: No evidence of acute disease. Electronically signed by Filiberto Reid 02/11/2019 3:16 PM 02/11/19 [id number] Interpreting Physician: Filiberto Reid MD Dictated Date/Time: 02/11/19 3781 cc: Elliott López MD; Sallie Estevez MD) - CONSULTS/PCP/HOSPITALIST Notification #1 *Consult/PCP/Hospitalist*: hospitalist Time Discussed: 17:26 Reason/Comments: wheezing dyspnea Consult Disposition: Admit Departure - Departure Date of Disposition Decision: 03/13/19 Time of Disposition Decision: 16:00 DIAGNOSIS: Asthmaticus, status Disposition: ADMITTED INPATIENT 09 Certified Medical Emergency: Emergent Condition: Stable - Critical Care Note This patient required my direct & personal management of CC.: Yes Total Time (mins): 37 Critical Care Statement: This patient required my direct personal management to treat or rule out processes, the absence of which, could potentiallly result in sudden, clinically significant life or limb threatening deterioration. Attestation - Physician/ KURT Attestation Patient care was provided by Advanced Practice Provider:: No The physician spent face to face time with patient:: Yes Advanced Practice Provider documentation review:: Supervising physician onsite and consulted in the evaluation and care of this patient. The physician did have a face to face encounter with the patient. This chart was documented by the indicated scribe, (Heather Sr Scribe) and accurately reflects the services I performed and decisions made by me, Elliott López MD, as attested by the provider's signature.
== END 2019-02-19 14:33 | disposition home or self-care (01) | DRG 202 ==
LOC: ED 12:51 → 3N 22:53 → SUATTDRO 22:53 → EDIPHOLD 23:10 → 3S 02-12 01:09
PROVIDERS: ATTEND Internal Medicine
CPT/HCPCS: 71010; 71020; 71045; 71046; 71275; 80048; 80053; 82550; 82553; 82805; 83735; 83880; 84439; 84443; 84484; 85025; 85610; 85730; 86038; 86039; 87070; 87205; 90732; 92960; 93005; 93010; 93306; 93312; 94640; 94660; 94761; 96361; 96372; 96374; 96375; 99285; A9270; J1160; J1650; J1940; J1956; J2920; J2930; J7030; J7506; J7512; Q9967